=== PATIENT | female | born 1965 | race Caucasian/White ===

== ENCOUNTER 2017-03-14 09:59 | Emergency (ER) | payer OTHER ==
[2017-03-14 12:00] LABS: BASOPHIL % 0.3 % (0-2); PLATELET COUNT 313 x10^3mcL (130-400); RED CELL DISTRIBUTION WIDTH 13.6 % (11.5-14.5)
[2017-03-14 12:57] VITALS: BP 100/62
== END 2017-03-14 12:57 | disposition home or self-care (01) ==
LOC: ED 09:59
PROVIDERS: Emergency Medicine
DX: R10.2 Pelvic and perineal pain (principal); N93.9 Abnormal uterine and vaginal bleeding, unspecified; M54.5 Low back pain; E07.9 Disorder of thyroid, unspecified
CPT/HCPCS: 36415; J1885